=== PATIENT | female | born 1995 | race Two or more races ===

== ENCOUNTER 2019-04-21 14:50 | Emergency (ER) | payer MEDICAID, OTHER ==
[~2019-04-21] VITALS: Ht 157.5 cm; Wt 81.6 kg
[2019-04-21 14:50] VITALS: BP 117/67
--- NOTE | 2019-04-21 14:52 | NUR ---
AAOX3, came to ER c/o diffuse abdominal pain with nausea but denies diarrhea and vomiting. RR is even and unlabored with NAD noted. Skin is warm and dry. Awaiting md for eval.
[2019-04-21 15:26] LABS: BASOPHILS # (AUTO) 0.1 /CMM (0.0-0.2); BASOPHILS % (AUTO) 0.7 % (0.0-2.0); EOSINOPHILS % (AUTO) 3.3 % (0.0-6.0); HEMATOCRIT 41 % (33-45); HEMOGLOBIN 13.6 g/dL (11.5-14.8); LYMPHOCYTES # (AUTO) 2.2 /CMM (0.8-4.8); LYMPHOCYTES % (AUTO) 26.9 % (20.0-44.0); MEAN CORPUSCULAR HGB CONC 34 g/dl (31.0-36.0); MEAN CORPUSCULAR VOLUME 88 fL (82-100); MONOCYTES # (AUTO) 0.7 /CMM (0.1-1.30); NEUTROPHILS # (AUTO) 4.8 /CMM (1.8-8.9); NEUTROPHILS % (AUTO) 60.1 % (43.0-81.0); PLATELET COUNT (AUTO) 403 /CMM (150-450); RED BLOOD CELL COUNT(AUTO) 4.61 MIL/uL (4.0-5.2)
[2019-04-21] MEDS ORDERED: ONDANSETRON HCL 4 MG/5 ML SOLUTION PO ONE (15:30)
[2019-04-21] MEDS ORDERED: MAG HYDROX/AL HYDROX/SIMETH 30 ML UDC PO ONE (15:30)
[2019-04-21] MEDS ORDERED: LIDOCAINE VISCOUS 2% UD 15 ML UDC MM ONE (15:30)
[2019-04-21] MEDS ORDERED: MAG HYDROX/AL HYDROX/SIMETH 30 ML UDC ONE (15:36)
[2019-04-21] MEDS ORDERED: LIDOCAINE VISCOUS 2% UD 15 ML UDC ONE (15:36)
[2019-04-21] MEDS ORDERED: ONDANSETRON 4 MG TAB.RAPDIS ONE (15:37)
[2019-04-21 15:41] LABS: ALBUMIN 3.9 g/dL (3.4-5.0); BILIRUBIN,DIRECT 0.1 mg/dL (0.0-0.2); BILIRUBIN,TOTAL 0.4 mg/dL (0.2-1.0); CREATININE 0.8 mg/dL (0.6-1.3); POTASSIUM 3.7 mmol/L (3.5-5.1); TOTAL PROTEIN, SERUM 7.3 g/dL (6.4-8.2)
[2019-04-21 15:42] LABS: APPEARANCE,URINE Cloudy (CLEAR); BILIRUBIN,URINE Negative (NEGATIVE); BLOOD, URINE Trace-intact Ery/uL (NEGATIVE); COLOR,URINE Yellow (YELLOW); KETONES,URINE Negative (NEGATIVE); LEUKOCYTE ESTERASE ,URINE Trace (NEGATIVE); NITRITE, URINE Negative (NEGATIVE); PROTEIN,URINE Negative (NEGATIVE); UGLUCOSE Negative (NEGATIVE); UROBILINOGEN,URINE 0.2 EU/dL (0.2)
[2019-04-21 16:11] LABS: BACTERIA,URINE 1+ /HPF (None Seen); SQUAMOUS EPITHELIAL CELL,UR Few /HPF (None Seen)
--- NOTE | 2019-04-21 16:21 | NUR ---
Patient discharged to home in stable condition. Written and verbal after care instructions given. Patient verbalizes understanding of instruction.
== END 2019-04-21 16:38 | disposition home or self-care (01) ==
LOC: ER 14:50
DX: R11.0 Nausea (principal); R10.13 Epigastric pain; Z60.2 Problems related to living alone
CPT/HCPCS: 36415; 80048; 80076; 81001; 83690; 84703; 85025; 87086; 99284; Q0162; 81000-TC

== ENCOUNTER 2019-04-25 11:01 | Emergency (ER) | payer OTHER ==
[~2019-04-25] VITALS: Ht 157.5 cm; Wt 77.1 kg
[2019-04-25 12:03] VITALS: BP 132/70
--- NOTE | 2019-04-25 12:50 | NUR ---
Patient awake alert non distress continue to monitor
--- NOTE | 2019-04-25 13:14 | NUR ---
Patient discharged to home in stable condition. Written and verbal after care instructions given. Patient verbalizes understanding of instruction.
== END 2019-04-25 13:26 | disposition home or self-care (01) ==
LOC: ER 11:03
DX: M25.571 Pain in right ankle and joints of right foot (principal); R22.42 Localized swelling, mass and lump, left lower limb; F17.200 Nicotine dependence, unspecified, uncomplicated; X50.1XXA Overexertion from prolonged static or awkward postures, initial encounter; Y93.01 Activity, walking, marching and hiking; Y92.89 Other specified places as the place of occurrence of the external cause; Y99.8 Other external cause status
CPT/HCPCS: 73610-TC

== ENCOUNTER 2021-11-25 06:17 | Emergency (ER) | payer MEDICAID, OTHER ==
[~2021-11-25] VITALS: Ht 157.5 cm; Wt 81.6 kg
--- NOTE | 2021-11-25 06:58 | NUR ---
COVID AND STREP SWAB
[2021-11-25] MEDS ORDERED: IBUP-1953 PO (07:52)
--- NOTE | 2021-11-25 08:01 | NUR ---
Patient discharged to home in stable condition. Written and verbal after care instructions given. Patient verbalizes understanding of instruction.
[2021-11-25 08:02] VITALS: BP 140/89
== END 2021-11-25 08:02 | disposition home or self-care (01) ==
LOC: ER 06:25
DX: J02.9 Acute pharyngitis, unspecified (principal); I89.1 Lymphangitis; Z20.822 Contact with and (suspected) exposure to COVID-19
CPT/HCPCS: 99283; 87426; 87070; 87880; C9803; 86403-TC